=== PATIENT | female | born 1945 | race Caucasian/White ===

== ENCOUNTER 2023-03-24 16:36 | Emergency (ER) | payer MEDICARE, OTHER, SELFPAY ==
[2023-03-24 16:50] VITALS: BP 155/72; PULSE 71; RESP 16; TEMP 36.4; O2SAT 97; BMI 27.5
--- NOTE | 2023-03-24 17:27 | XR_ITS ---
The [address] [address] Patient Name: MARIAM SANCHEZ MRN: [id number] date: 1945 Sex: F Assigned Patient Location: ER Current Patient Location: ED.MAIN Accession/Order Number: [id number] Exam Date: 03/24/2023 17:20 Report Date: 03/24/2023 18:06 At the request of: JUAN CARLOS CAMEJO Procedure: XR ribs RT min 3V w CXR1V EXAM: XR ribs RT min 3V w CXR1V HISTORY: pain COMPARISON: None. TECHNIQUE: Frontal view of the chest. 3 views from a right third rib series. FINDINGS: No focal consolidations or pleural effusions. No evidence of pneumothorax. There is a moderate hiatal hernia. Cardiac mediastinal silhouette is unremarkable. Moderate to severe levoscoliosis of the lumbar spine. No acute displaced rib fractures are seen. XR/XR ribs RT min 3V w CXR1V IMPRESSION: No acute disease. No acute displaced rib fractures. Hiatal hernia. Electronically authenticated by: TC CARVAJAL Date: 03/24/2023 18:06
--- NOTE | 2023-03-24 18:54 | ED.BACK1 ---
Documented by User: Alix Lainez 03/24/23 19:20 HPI - Back Pain/Injury General Chief Complaint: Back Pain/Injury Stated Complaint: BACK PAIN Time Seen by Provider: 03/24/23 18:50 Source: patient and family Mode of arrival: walk-in Limitations: no limitations History of Present Illness HPI Narrative: 78 year old female presents to the ED for pain to her right mid back that wraps around her right side. The pain is worse with movement, palpation, inspiration. Denies fever, chills, injury, SOB, urinary sx. States she was gardening yesterday. She believes she may have pulled a muscle. Rates her pain 8/10 at this time. She is accompanied by family for a ride home. Rib x-rays were ordered by triage per protocol. Imaging was resulted prior to the patient arrival to the tx room; she declined spine x-rays today. Related Data Previous Rx's Medication Instructions Recorded hydrocodone 5 mg-acetaminophen 325 1 tab PO Q8H PRN pain #12 tabs 03/24/23 mg tablet hydrocodone 5 mg-acetaminophen 325 1 tab PO Q8H PRN pain #12 tabs 03/24/23 mg tablet prednisone 20 mg tablet 40 mg PO DAILY 5 days #10 tabs 03/24/23 prednisone 20 mg tablet 40 mg PO DAILY 5 days #10 tabs 03/24/23 Allergies Allergy/AdvReac Type Severity Reaction Status Date / Time No Known Drug Allergies Allergy Verified 03/24/23 16:54 Review of Systems ROS Constitutional Denies: fever or chills Cardiovascular Denies: chest pain Respiratory Denies: shortness of breath or cough Gastrointestinal Denies: abdominal pain, nausea, vomiting or diarrhea Genitourinary Denies: painful urination, urinary frequency, urinary urgency or blood in urine Musculoskeletal Reports: back pain; Denies: neck pain Integumentary/Breast Denies: rash or redness PFSH PFSH Social History Smoking status: Never smoker Exam Constitutional Vital Signs, click to edit/add: Last Vital Signs Temp 97.6 F 03/24/23 16:50 Pulse 71 03/24/23 16:50 Resp 16 03/24/23 16:50 BP 155/72 H 03/24/23 16:50 Pulse Ox 97 03/24/23 16:50 O2 Del Method Room Air 03/24/23 16:50 Common normals: no apparent distress and oriented x3 Exam limitations: altered mental status General appearance: cooperative; not ill appearing Orientation/consciousness: Yes awake Neck & C-Spine Common normals: supple Cervical spine: no cervical spine tenderness and no paracervical muscle tenderness Chest Chest: symmetrical chest wall rise Respiratory Common normals: normal respiratory effort Effort & inspection: able to speak in complete sentences and symmetric chest movement Cardio Common normals: regular rate Back & Pelvis Thoracic spine/upper back: normal to inspection (Skin changes due to patient use of heating pad. No hayden noted. ), pain with ROM, paraspinal muscle tenderness, paraspinal muscle spasm and other soft tissue findings (No vesicular rash or lesions noted.); no thoracic spinal tenderness Lumbar spine/lower back: normal to inspection; no lumbar spinal tenderness and no paraspinal muscle tenderness Extremity Common normals: normal capillary refill Neuro Common normals: oriented x3 Sensorium/orientation: awake and alert Course Vital Signs Vital signs: Vital Signs Temperature 97.6 F 03/24/23 16:50 Pulse Rate 71 03/24/23 16:50 Respiratory Rate 16 03/24/23 16:50 Blood Pressure 155/72 H 03/24/23 16:50 Pulse Oximetry 97 03/24/23 16:50 Oxygen Delivery Method Room Air 03/24/23 16:50 Temperature 97.6 F 03/24/23 16:50 Pulse Rate 71 03/24/23 16:50 Respiratory Rate 16 03/24/23 16:50 Blood Pressure 155/72 H 03/24/23 16:50 Pulse Oximetry 97 03/24/23 16:50 Oxygen Delivery Method Room Air 03/24/23 16:50 MDM - Back Pain/Injury MDM Narrative Medical decision making narrative: X-rays of the ribs were ordered by triage per protocol. Results showed no acute findings. The patient declined imaging of her spine. A ride was present. She was medicated for her discomfort here. OARRS was reviewed. Prescriptions were provided for prednisone and norco. Follow up with pcp for a recheck, further evaluation and treatment. Return precautions were discussed. Lab Data Attestation: I reviewed the patient's lab results. Imaging Data XR ribs, right: Attestation: I have reviewed the pertinent imaging results. Radiologist's impression: Procedure: XR ribs RT min 3V w CXR1V EXAM: XR ribs RT min 3V w CXR1V HISTORY: pain COMPARISON: None. TECHNIQUE: Frontal view of the chest. 3 views from a right third rib series. FINDINGS: No focal consolidations or pleural effusions. No evidence of pneumothorax. There is a moderate hiatal hernia. Cardiac mediastinal silhouette is unremarkable. Moderate to severe levoscoliosis of the lumbar spine. No acute displaced rib fractures are seen. XR/XR ribs RT min 3V w CXR1V IMPRESSION: No acute disease. No acute displaced rib fractures. Hiatal hernia. Electronically authenticated by: TC CARVAJAL Date: 03/24/2023 18:06 Discharge Plan Discharge Chief Complaint: Back Pain/Injury Clinical Impression: Back pain Patient Disposition: Home, Self-Care Time of Disposition Decision: 18:56 Condition: Good Mode of Transportation: Private Vehicle Prescriptions / Home Meds: New hydrocodone-acetaminophen 5-325 mg tablet 1 tab PO Q8H PRN (Reason: pain) Qty: 12 0RF prednisone 20 mg tablet 40 mg PO DAILY 5 Days Qty: 10 0RF prednisone 20 mg tablet 40 mg PO DAILY 5 Days Qty: 10 0RF hydrocodone-acetaminophen 5-325 mg tablet 1 tab PO Q8H PRN (Reason: pain) Qty: 12 0RF Instructions: Back Pain (ED) Stand Alone Forms: Portal Instructions Referrals: LASHELL LEAHY [Primary Care Provider] - 1 week Discharge Date/Time: 03/24/23 19:27 Documented by User: Kateryna Fang MD 03/26/23 08:22 HPI - Back Pain/Injury General Chief Complaint: Back Pain/Injury Stated Complaint: BACK PAIN Time Seen by Provider: 03/24/23 18:50 Related Data Previous Rx's Medication Instructions Recorded hydrocodone 5 mg-acetaminophen 325 1 tab PO Q8H PRN pain #12 tabs 03/24/23 mg tablet hydrocodone 5 mg-acetaminophen 325 1 tab PO Q8H PRN pain #12 tabs 03/24/23 mg tablet prednisone 20 mg tablet 40 mg PO DAILY 5 days #10 tabs 03/24/23 prednisone 20 mg tablet 40 mg PO DAILY 5 days #10 tabs 03/24/23 Allergies Allergy/AdvReac Type Severity Reaction Status Date / Time No Known Drug Allergies Allergy Verified 03/24/23 16:54 PFSH PFSH Social History Smoking status: Never smoker Exam Constitutional Vital Signs, click to edit/add: Last Vital Signs Temp 97.6 F 03/24/23 16:50 Pulse 71 03/24/23 16:50 Resp 16 03/24/23 16:50 BP 155/72 H 03/24/23 16:50 Pulse Ox 97 03/24/23 16:50 O2 Del Method Room Air 03/24/23 16:50 Course Vital Signs Vital signs: Vital Signs Temperature 97.6 F 03/24/23 16:50 Pulse Rate 71 03/24/23 16:50 Respiratory Rate 16 03/24/23 16:50 Blood Pressure 155/72 H 03/24/23 16:50 Pulse Oximetry 97 03/24/23 16:50 Oxygen Delivery Method Room Air 03/24/23 16:50 Temperature 97.6 F 03/24/23 16:50 Pulse Rate 71 03/24/23 16:50 Respiratory Rate 16 03/24/23 16:50 Blood Pressure 155/72 H 03/24/23 16:50 Pulse Oximetry 97 03/24/23 16:50 Oxygen Delivery Method Room Air 03/24/23 16:50 MDM - Back Pain/Injury MDM Narrative Medical decision making narrative: X-rays of the ribs were ordered by triage per protocol. Results showed no acute findings. The patient declined imaging of her spine. A ride was present. She was medicated for her discomfort here. [place]ARRS was reviewed. Prescriptions were provided for prednisone and norco. Follow up with pcp for a recheck, further evaluation and treatment. Return precautions were discussed. Attending physician attestation I have reviewed the mid-level documentation, agree with the documentation, medical decision making and treatment plan as outlined by the mid-level provider. Discharge Plan Discharge Chief Complaint: Back Pain/Injury Clinical Impression: Back pain Patient Disposition: Home, Self-Care Time of Disposition Decision: 18:56 Condition: Good Mode of Transportation: Private Vehicle Prescriptions / Home Meds: New hydrocodone-acetaminophen 5-325 mg tablet 1 tab PO Q8H PRN (Reason: pain) Qty: 12 0RF prednisone 20 mg tablet 40 mg PO DAILY 5 Days Qty: 10 0RF prednisone 20 mg tablet 40 mg PO DAILY 5 Days Qty: 10 0RF hydrocodone-acetaminophen 5-325 mg tablet 1 tab PO Q8H PRN (Reason: pain) Qty: 12 0RF Instructions: Back Pain (ED) Stand Alone Forms: Portal Instructions Referrals: LASHELL LEAHY [Primary Care Provider] - 1 week Discharge Date/Time: 03/24/23 19:27
[2023-03-24] MEDS: HYDROCODONE/ACETAMINOPHEN 5-325 MG TABLET 1 TAB PO (19:16)
[2023-03-24] MEDS: PREDNISONE 20 MG TABLET 40 MG PO (19:16)
== END 2023-03-24 19:27 | disposition home or self-care (01) ==
PROVIDERS: Emergency Provider Emergency Medicine; PCP Family Medicine
DX: M54.9 Dorsalgia, unspecified (principal)
CPT/HCPCS: 71101; 99283